=== PATIENT | male | born 1985 | race Two or more races ===

== ENCOUNTER 2017-08-03 13:17 | Emergency (ER) | payer SELFPAY ==
[~2017-08-03] VITALS: Ht 167.6 cm; Wt 79.0 kg
[2017-08-03] MEDS ORDERED: SODIUM CHLORIDE 0.9% 1,000 ML IV ONE (15:00)
[2017-08-03] MEDS ORDERED: ONDANSETRON HCL 4MG/2ML VIAL IV ONE (15:00)
[2017-08-03 16:35] LABS: BASOPHILS % 0.6 % (0.0-2.0); EOSINOPHILS % 0.1 % (0.0-5.0); HEMATOCRIT. 44.5 % (42.0-52.0); HEMOGLOBIN. 15.2 g/dL (14.0-18.0); LYMPHOCYTES % 14.5 % (20.0-50.0); MEAN CORPUSCULAR HEMOGLOBIN 32.7 pg (28.0-32.0); MEAN PLATELET VOLUME 7.5 fl (7.4-10.4); MONOCYTES % 2.8 % (2.0-8.0); PLATELET 219 x1000/uL (130-400); RED BLOOD CELL COUNT 4.64 mill/uL (4.7-6.1); RED CELL DISTRIBUTION WIDTH 13.2 % (11.6-14.6)
[2017-08-03 16:41] LABS: CHLORIDE 104 mEq/L (98-107)
[2017-08-03 16:42] LABS: PROTHROMBIN TIME 10.7 sec (9.4-11.6)
[2017-08-03 18:40] VITALS: BP 131/62
== END 2017-08-03 18:55 | disposition home or self-care (01) ==
LOC: ER 13:17
DX: T40.3X1A Poisoning by methadone, accidental (unintentional), initial encounter (principal); A35 Other tetanus; F11.10 Opioid abuse, uncomplicated; F17.200 Nicotine dependence, unspecified, uncomplicated; R79.1 Abnormal coagulation profile; Z16.39 Resistance to other specified antimicrobial drug; Y92.89 Other specified places as the place of occurrence of the external cause
CPT/HCPCS: 21480; 36415; 71045; 80053; 80307; 80329; 83605; 85025; 85610; 96361; 96374; 99285; J2405; J7030